=== PATIENT | female | born 1990 | race Caucasian/White ===

== ENCOUNTER 2024-12-08 15:08 | Emergency (ER) | payer MEDICAID ==
[~2024-12-08] VITALS: Ht 170.2 cm; Wt 64.0 kg
[2024-12-08 15:36] VITALS: O2SAT 98
[2024-12-08 16:44] LABS: BASOPHILS % 1.1 % (0.0-2.0); EOSINOPHILS % 0.9 % (0.0-5.0); HEMATOCRIT. 37.4 % (36.0-48.0); HEMOGLOBIN. 12.8 g/dL (12.0-16.0); LYMPHOCYTES % 30.4 % (20.0-50.0); MEAN CORPUSCULAR HEMOGLOBIN 31.7 pg (28.0-32.0); MEAN CORPUSCULAR HGB CONC 34.1 g/dL (31.0-37.0); MEAN CORPUSCULAR VOLUME 92.9 fL (81.0-99.0); MEAN PLATELET VOLUME 8.4 fl (7.4-10.4); MONOCYTES % 7.3 % (2.0-8.0); NEUTROPHILS % 60.3 % (40.0-76.0); PLATELET 274 x1000/uL (130-400); RED BLOOD CELL COUNT 4.03 mill/uL (4.2-5.4); RED CELL DISTRIBUTION WIDTH 13.2 % (11.6-14.6); WHITE BLOOD COUNT 8.2 x1000/uL (4.5-11.0)
[2024-12-08 16:52] LABS: CHLORIDE 104 mEq/L (98-107); POTASSIUM 3.9 mEq/L (3.5-5.1); SODIUM 137 mEq/L (136-145)
[2024-12-08 16:53] LABS: CARBON DIOXIDE 29 mEq/L (21-32)
[2024-12-08 16:54] LABS: CALCIUM 9.6 mg/dL (8.7-10.4)
[2024-12-08 16:56] LABS: PROTHROMBIN TIME 10.3 sec (9.6-11.0)
[2024-12-08 16:58] LABS: CREATININE 0.8 mg/dL (0.6-1.0); GLUCOSE 101 mg/dL (70-105); UREA NITROGEN BLOOD 8 mg/dL (9-23)
[2024-12-08 17:02] LABS: TROPONIN I HIGH SENSITIVITY < 4 ng/L (3.0-34)
[2024-12-08 17:09] LABS: HCG SCREEN NEGATIVE
[2024-12-08 17:12] VITALS: TEMP 36.8
[2024-12-08 19:18] VITALS: BP 110/72; PULSE 63; RESP 18; O2SAT 99
[2024-12-08 19:23] LABS: CLARITY URINE CLEAR (CLEAR); GLUCOSE URINE NEGATIVE (NEGATIVE); KETONES URINE NEGATIVE (NEGATIVE); LEUKOCYTE ESTERASE URINE TRACE (NEGATIVE); NITRITE URINE NEGATIVE (NEGATIVE); OCCULT BLOOD URINE NEGATIVE (NEGATIVE); PROTEIN URINE NEGATIVE (NEGATIVE); SPECIFIC GRAVITY URINE 1.009 (1.005-1.030); UROBILINOGEN URINE 0.2 E.U./dL (0.2-1.0)
[2024-12-08] MEDS ORDERED: NITR100C MT (19:43)
[2024-12-08 19:53] LABS: COLOR URINE STRAW (YELLOW)
[2024-12-08 19:55] LABS: RBC URINE NONE SEEN /hpf (0-2); WBC URINE 0-2 /hpf (0-2)
[2024-12-08 20:13] LABS: BACTERIA URINE NONE SEEN
== END 2024-12-08 19:56 | disposition home or self-care (01) ==
LOC: ER 15:08
DX: N39.0 Urinary tract infection, site not specified (principal); R42 Dizziness and giddiness; R55 Syncope and collapse; R06.02 Shortness of breath
CPT/HCPCS: 80048; 81003; 84703; 83880; 85025; 85610; 84484; 36415; 71045; 93005; 99285; Z7610

== ENCOUNTER 2025-03-29 18:26 | Emergency (ER) | payer SELFPAY ==
[~2025-03-29] VITALS: Ht 162.6 cm; Wt 71.0 kg
[~2025-03-29 18:26] MED LIST: NITR100C MT
[2025-03-29 18:30] VITALS: TEMP 36.9; O2SAT 100
[2025-03-29 19:49] LABS: CLARITY URINE CLEAR (CLEAR); COLOR URINE YELLOW (YELLOW); GLUCOSE URINE NEGATIVE (NEGATIVE); KETONES URINE TRACE (NEGATIVE); LEUKOCYTE ESTERASE URINE NEGATIVE (NEGATIVE); NITRITE URINE NEGATIVE (NEGATIVE); OCCULT BLOOD URINE NEGATIVE (NEGATIVE); PH URINE 6.0 (4.5-8.0); PROTEIN URINE NEGATIVE (NEGATIVE); SPECIFIC GRAVITY URINE 1.031 (1.005-1.030); UROBILINOGEN URINE 1.0 E.U./dL (0.2-1.0)
[2025-03-29 20:51] LABS: BASOPHILS % 1.0 % (0.0-2.0); EOSINOPHILS % 1.4 % (0.0-5.0); HEMATOCRIT. 39.4 % (36.0-48.0); HEMOGLOBIN. 13.0 g/dL (12.0-16.0); LYMPHOCYTES % 33.0 % (20.0-50.0); MEAN PLATELET VOLUME 7.8 fl (7.4-10.4); MONOCYTES % 9.9 % (2.0-8.0); NEUTROPHILS % 54.7 % (40.0-76.0); PLATELET 264 x1000/uL (130-400); RED BLOOD CELL COUNT 4.15 mill/uL (4.2-5.4); RED CELL DISTRIBUTION WIDTH 13.0 % (11.6-14.6)
[2025-03-29 21:00] LABS: CREATININE 0.6 mg/dL (0.6-1.0); UREA NITROGEN BLOOD 9 mg/dL (9-23)
[2025-03-29 21:03] LABS: HCG SCREEN POSITIVE
[2025-03-29] MEDS ORDERED: IBUP-1523 MT (22:05)
[2025-03-29] MEDS ORDERED: TOPUD MT (22:05)
[2025-03-29 23:15] VITALS: BP 105/60; PULSE 71; RESP 18; O2SAT 100
== END 2025-03-29 23:15 | disposition home or self-care (01) ==
LOC: ER 18:26
DX: O36.4XX0 Maternal care for intrauterine death, not applicable or unspecified (principal); Z3A.01 Less than 8 weeks gestation of pregnancy; Z79.899 Other long term (current) drug therapy
CPT/HCPCS: 36415; 76801; 80048; 81003; 81025; 84702; 84703; 85025; 86850; 86900; 99284